=== PATIENT | female | born 1955 | race African-American/Black ===

== ENCOUNTER 2023-04-24 00:24 | Inpatient (IN) | payer MEDICAID ==
[~2023-04-24] VITALS: Ht 175.3 cm; Wt 194.3 kg
[~2023-04-24 00:24] MED LIST: ASPI-1160 PO; DICL100G31 TP; METO25TA6 PO; SIMV-43 PO; TOPUD PO
[2023-04-24 03:18] LABS: BG BASE EXCESS 1.3 mmol/L (-2.0-2.0); BG CARBOXYHEMOGLOBIN 1.4 % (0.5-1.5); BG FRACTION INSPIRED OXYGEN 21; BG HCO3 ACT 23.1 mmol/L (22.0-26.0); BG METHEMOGLOBIN 0.3 % (0.0-1.5); BG OXYGEN SATURATION 94.9 % (92.0-98.5); BG OXYHEMOGLOBIN 93.3 % (94.0-97.0); BG PCO2 28.8 mmHg (35.0-45.0); BG PH 7.523 (7.350-7.450); BG PO2 71.7 mmHg (75.0-100.0); BG SAMPLE SITE RIGHT RADIAL; BG TOTAL HEMOGLOBIN 13.1 g/dL (12.0-18.0); BG VENT MODE ROOM AIR
[2023-04-24 03:58] LABS: MEAN CORPUSCULAR HEMOGLOBIN 29.7 pg (28.0-32.0); MEAN CORPUSCULAR VOLUME 88.9 fL (81.0-99.0); MEAN PLATELET VOLUME 10.6 fl (7.4-10.4); PLATELET 167 x1000/uL (130-400); RED BLOOD CELL COUNT 4.38 mill/uL (4.2-5.4); RED CELL DISTRIBUTION WIDTH 14.1 % (11.6-14.6)
[2023-04-24 04:42] LABS: NUCLEATED RED BLOOD CELLS 1 /100 WBC
[2023-04-24 04:43] LABS: PLATELET ESTIMATE NORMAL
[2023-04-24] MEDS ORDERED: CEFTRIAXONE 1GM PREMIX 50 ML IV NR (06:30)
[2023-04-24 07:23] LABS: CHLORIDE 107 mEq/L (98-107)
[2023-04-24 09:00] VITALS: BP 139/62
[2023-04-24] MEDS ORDERED: CLONIDINE 0.1MG TABLET PO PRN (09:30)
[2023-04-24] MEDS ORDERED: ONDANSETRON HCL 4MG/2ML INJ IV PRN (09:30)
[2023-04-24] MEDS ORDERED: ACETAMINOPHEN 650MG/20.3ML UDC GT PRN (09:30)
[2023-04-24] MEDS: ENOXAPARIN 40MG/0.4ML SYR SUBCUT SCH ×2 (10:00→21:19)
[2023-04-24] MEDS ORDERED: CEFTRIAXONE 1,000 MG in DEXTROSE 5% WATER 50 ML IV SCH (10:00)
[2023-04-24 15:31] LABS: BASOPHILS % 0.4 % (0.0-2.0); HEMATOCRIT. 32.9 % (36.0-48.0); HEMOGLOBIN. 10.8 g/dL (12.0-16.0); LYMPHOCYTES % 12.2 % (20.0-50.0); MEAN CORPUSCULAR HEMOGLOBIN 29.5 pg (28.0-32.0); MEAN CORPUSCULAR VOLUME 89.9 fL (81.0-99.0); MEAN PLATELET VOLUME 9.6 fl (7.4-10.4); MONOCYTES % 8.2 % (2.0-8.0); NEUTROPHILS % 79.2 % (40.0-76.0); PLATELET 156 x1000/uL (130-400); RED BLOOD CELL COUNT 3.66 mill/uL (4.2-5.4); RED CELL DISTRIBUTION WIDTH 13.8 % (11.6-14.6)
[2023-04-24 16:00] VITALS: BP 127/52
[2023-04-24] MEDS: METOPROLOL TARTRATE 25MG TABLET PO SCH ×2 (16:28→21:20)
[2023-04-24] MEDS: SODIUM CHLORIDE 0.9% 1,000 ML IV SCH ×2 (16:29→22:50)
[2023-04-24] MEDS ORDERED: PNEUMOCOCCAL 23-VAL P-SAC VAC 0.5 ML IM ONE (18:30)
[2023-04-24 20:00] VITALS: BP 134/56
[2023-04-24] MEDS ORDERED: ATORVASTATIN CALCIUM 20MG TABLET PO SCH (21:00)
[2023-04-24] MEDS: ACETAMINOPHEN 325MG TABLET PO PRN (21:30)
[2023-04-25] VITALS: BP 123/77
[2023-04-25] MEDS ORDERED: APIXABAN 5 MG TABLET PO SCH (00:30)
[2023-04-25] MEDS ORDERED: ALPRAZOLAM 0.5 MG TABLET PO SCH (00:30)
[2023-04-25 04:00] VITALS: BP 120/55
[2023-04-25 08:00] VITALS: BP 106/53
[2023-04-25] MEDS: CEFTRIAXONE 1,000 MG in DEXTROSE 5% WATER 50 ML IV SCH (09:07)
[2023-04-25] MEDS: ASPIRIN 81MG TABLET PO SCH (09:07)
[2023-04-25] MEDS: METOPROLOL TARTRATE 25MG TABLET PO SCH ×2 (09:08→22:53)
[2023-04-25] MEDS: APIXABAN 5 MG TABLET PO SCH ×2 (09:08→18:35)
[2023-04-25] MEDS: ALPRAZOLAM 0.5 MG TABLET PO SCH ×2 (09:11→18:35)
[2023-04-25] MEDS ORDERED: ASPIRIN 81MG TABLET PO SCH (11:45)
[2023-04-25 12:00] VITALS: BP 116/50
[2023-04-25] MEDS ORDERED: CLOPIDOGREL 75MG TABLET PO SCH (12:00)
[2023-04-25] MEDS: AMIODARONE HCL 200 MG TABLET PO SCH ×2 (13:38→18:35)
[2023-04-25] MEDS: SODIUM CHLORIDE 0.9% 1,000 ML IV SCH ×2 (13:38→23:01)
[2023-04-25 16:00] VITALS: BP 115/56
[2023-04-25 16:42] LABS: T4 FREE 1.04 ng/dL (0.76-1.46)
[2023-04-25 20:00] VITALS: BP 130/60
[2023-04-25] MEDS ORDERED: ATORVASTATIN CALCIUM 40MG TABLET PO SCH (21:00)
[2023-04-26] VITALS: BP 133/55
[2023-04-26 04:00] VITALS: BP 137/59
[2023-04-26 06:07] LABS: BASOPHILS % 0.6 % (0.0-2.0); EOSINOPHILS % 2.9 % (0.0-5.0); HEMATOCRIT. 31.2 % (36.0-48.0); HEMOGLOBIN. 10.6 g/dL (12.0-16.0); LYMPHOCYTES % 32.9 % (20.0-50.0); MEAN CORPUSCULAR HEMOGLOBIN 30.7 pg (28.0-32.0); MEAN CORPUSCULAR VOLUME 90.1 fL (81.0-99.0); MEAN PLATELET VOLUME 9.5 fl (7.4-10.4); MONOCYTES % 12.3 % (2.0-8.0); NEUTROPHILS % 51.3 % (40.0-76.0); PLATELET 154 x1000/uL (130-400); RED BLOOD CELL COUNT 3.46 mill/uL (4.2-5.4); RED CELL DISTRIBUTION WIDTH 13.7 % (11.6-14.6)
[2023-04-26 06:08] LABS: CHLORIDE 111 mEq/L (98-107)
[2023-04-26 06:15] LABS: HDL CHOLESTEROL 25 mg/dL (40-59); LDL CHOLESTEROL 98 mg/dL (5-100)
[2023-04-26 08:00] VITALS: BP 132/55
[2023-04-26] MEDS: ASPIRIN 81MG TABLET PO SCH (10:02)
[2023-04-26] MEDS: CEFTRIAXONE 1,000 MG in DEXTROSE 5% WATER 50 ML IV SCH (10:02)
[2023-04-26] MEDS: ALPRAZOLAM 0.5 MG TABLET PO SCH (10:03)
[2023-04-26] MEDS: AMIODARONE HCL 200 MG TABLET PO SCH (10:03)
[2023-04-26] MEDS: APIXABAN 5 MG TABLET PO SCH (10:03)
[2023-04-26] MEDS: METOPROLOL TARTRATE 25MG TABLET PO SCH (10:03)
[2023-04-26] MEDS: ACETAMINOPHEN 325MG TABLET PO PRN (10:04)
[2023-04-26] MEDS ORDERED: APIX5TAB PO (10:20)
[2023-04-26] MEDS ORDERED: AMI2 PO (10:20)
[2023-04-26] MEDS ORDERED: AMOX1TAB16 MT (10:20)
[2023-04-26] MEDS ORDERED: LIP40 PO (10:20)
[2023-04-26 12:00] VITALS: BP 101/52
[2023-04-26 12:32] VITALS: BP 152/64
== END 2023-04-26 14:46 | disposition home or self-care (01) | DRG 720 ==
LOC: ER 00:38 → 7WST 06:19 → ENRESERV 06:44
PROVIDERS: ADMIT Internal Medicine; ATTEND Internal Medicine
DX: A41.9 Sepsis, unspecified organism (principal); I21.4 Non-ST elevation (NSTEMI) myocardial infarction; G93.41 Metabolic encephalopathy; N17.9 Acute kidney failure, unspecified; E66.01 Morbid (severe) obesity due to excess calories; I10 Essential (primary) hypertension; E11.9 Type 2 diabetes mellitus without complications; E78.00 Pure hypercholesterolemia, unspecified; E78.5 Hyperlipidemia, unspecified; I48.0 Paroxysmal atrial fibrillation; Z79.01 Long term (current) use of anticoagulants; Z79.899 Other long term (current) drug therapy; Z68.44 Body mass index [BMI] 60.0-69.9, adult
CPT/HCPCS: 36415; 36600; 71045; 80048; 80053; 80061; 82375; 82805; 83036; 83605; 84145; 84439; 84443; 84481; 84484; 85025; 93005; 93306; 93970; 97110; 97162; 97166; 99285; A6261; J0696; J1650; J7030; J7060